=== PATIENT | female | born 1995 | race Caucasian/White ===

== ENCOUNTER → 2020-09-06 13:57 | Outpatient (CLI) | payer OTHER, SELFPAY ==
--- NOTE | ~2020-09-06 | US_ITS ---
CORRECTED REPORT US OB <= 14 weeks fetus added to description. 10/22/2020 sef EXAMINATION: US OB <= 14 weeks fetus and US OB <= 14 wk fetus add gest EXAM DATE: 09/06/2020 14:39 INDICATION: Spotting 1st trimester. 1st trimester. TECHNIQUE: Pelvic obstetrical transabdominal sonogram was performed by a technologist. There are multiple grayscale and Doppler images available for interpretation. There are no earlier studies of this gestation for comparison. FINDINGS: Uterus measures 8.6 x 5.5 x 6.9 cm. There is intrauterine gestation sac. There are 2 poles and yolk sacs identified. Technologist believed this to be dichorionic diamniotic twin gestation, however cannot identify definite separation on images available. Consider follow-up ultrasound at 11-13 weeks. Fetus A has a heart rate 146 bpm, crown-rump length of 1.2 cm corresponding to estimated gestational age 7 weeks 3 days, [facility] 04/22/2021 by ultrasound. Fetus B has a heart rate of 148 bpm, crown-rump length also 1.2 cm corresponding to gestational age 7 weeks 3 days. The left ovary has corpus luteal cyst measuring about 3 cm. Right ovary not identified. No subchorionic hematoma identified. IMPRESSION: Early live intrauterine twin gestations, age by ultrasound 7 weeks 3 days. Consider follow-up ultrasound in one month to better evaluate for number of chorionic/amniotic sacs. Reviewed, dictated and finalized at location [facility]. [facility] IMPRESSION: Early live intrauterine twin gestations, age by ultrasound 7 weeks 3 days. Consider follow-up ultrasound in one month to better evaluate for numb er of chorionic/amniotic sacs.
--- NOTE | ~2020-09-06 | US_ITS ---
EXAMINATION: US OB transvaginal EXAM DATE: 09/06/2020 14:39 INDICATION: Spotting 1st trimester. 1st trimester. TECHNIQUE: Pelvic obstetrical transabdominal sonogram was performed by a technologist. There are mu ltiple grayscale and Doppler images available for interpretation. There are no earlier studies of th is gestation for comparison. FINDINGS: Uterus measures 8.6 x 5.5 x 6.9 cm. There is intrauterine gestation sac. There are 2 poles and yolk sacs identified. Technologist believed this to be dichorionic diamniotic twin gestati on, however cannot identify definite separation on images available. Consider follow-up ultrasound at 11-13 weeks. Fetus A has a heart rate 146 bpm, crown-rump length of 1.2 cm corresponding to estimated gestational age 7 weeks 3 days, X[facility] 04/22/2021 by ultrasound. Fetus B has a heart rate of 148 bpm, crown-rump length also 1.2 cm corresponding to gestational age 7 weeks 3 days. The left ovary has corpus luteal cyst measuring about 3 cm. Right ovary not identified. No subchorion ic hematoma identified. IMPRESSION: Early live intrauterine twin gestations, age by ultrasound 7 weeks 3 days. Consider foll ow-up ultrasound in one month to better evaluate for number of chorionic/amniotic sacs. Reviewed, dictated and finalized at location B. IMPRESSION: Early live intrauterine twin gestations, age by ultrasound 7 weeks 3 days. Consider follow-up ultrasound in one month to better evaluate for numb er of chorionic/amniotic sacs.
== END ==
PROVIDERS: Visit Provider Nurse Practitioner
DX: O26.851 Spotting complicating pregnancy, first trimester (principal); Z3A.01 Less than 8 weeks gestation of pregnancy
CPT/HCPCS: 76801; 76802; 76817